=== PATIENT | male | born 1970 | race Caucasian/White ===

== ENCOUNTER 2020-08-26 19:22 | Observation (INO) | payer BC ==
[2020-08-26] MEDS ORDERED: Acetaminophen 325 MG TAB PO PRN (22:32)
[2020-08-26] MEDS ORDERED: Ondansetron PF 4 MG/2 ML Vial IVP PRN (22:32)
[2020-08-26] MEDS ORDERED: Atorvastatin Calcium 10 MG TAB PO SCH (23:30)
[2020-08-27 00:04] LABS: Troponin I 0.014 ng/mL (< 0.028)
[2020-08-27 00:43] VITALS: BMI 30.6
[2020-08-27 02:29] LABS: Troponin I Less than 0.010 ng/mL (< 0.028)
[2020-08-27 05:49] LABS: #Basophils 0.1 thou/uL (0.0-0.2); #Eosinphils 0.3 thou/uL (0.0-0.7); #Monocytes 0.8 thou/uL (0.11-0.59); #Neutrophils 3.4 thou/uL (1.40-6.50); %Basophils 0.9 % (0.0-1.0); %Eosinophils 3.9 % (0.0-10.0); %Lymphocytes 30.7 % (21.0-51.0); %Monocytes 12.1 % (0.0-10.0); %Neutrophils 52.5 % (42.0-75.0); Hemoglobin 13.4 g/dL (14.0-18.0); Mean Corpuscular HGB CONC 33.8 g/dL (32.0-36.0); Mean Corpuscular Hemoglobin 30.8 pg (27.0-31.0); Mean Corpuscular Volume 91.1 fL (78.0-98.0); Mean Platelet Volume 6.1 fL (7.4-10.4); Platelet Count 274 thou/uL (130-400); Red Blood Cell (RBC) Count 4.35 mill/uL (4.70-6.10); White Blood Cell (WBC) Count 6.6 thou/uL (4.8-10.8)
[2020-08-27 05:57] LABS: Anion Gap 12 mmol/L (10-20); BUN (Urea Nitrogen) 21 mg/dL (8.4-25.7); Calc. Creatinine Clearance 117 mL/min (70-130); Calcium 8.4 mg/dL (7.8-10.44); Carbon Dioxide 23 mmol/L (22-29); Chloride 107 mmol/L (98-107); Glucose 96 mg/dL (70-105); Potassium 4.2 mmol/L (3.5-5.1); Sodium 138 mmol/L (136-145)
[2020-08-27] MEDS ORDERED: Aspirin Chewable 81 MG TAB PO SCH (07:15)
[2020-08-27 08:56] LABS: Cardiac Risk 3.4 (Less than 4.5)
[2020-08-27] MEDS ORDERED: Amlodipine 5 MG TAB PO SCH (09:00)
[2020-08-27] MEDS ORDERED: Iopamidol 370 76% 100 ML VIAL ONE (12:52)
[2020-08-27 16:42] VITALS: BP 131/88; TEMP 98.3
[2020-08-27] MEDS ORDERED: Atorvastatin Calcium 10 MG TAB PO SCH (21:00)
[2020-08-28] MEDS ORDERED: Aspirin Chewable 81 MG TAB PO SCH (09:00)
== END 2020-08-27 18:13 | disposition home or self-care (01) ==
LOC: 2SW 19:22
PROVIDERS: ADMIT Internal Medicine; ATTEND Internal Medicine
DX: R55 Syncope and collapse (principal); I73.89 Other specified peripheral vascular diseases; I10 Essential (primary) hypertension; E78.2 Mixed hyperlipidemia; F17.200 Nicotine dependence, unspecified, uncomplicated; I08.1 Rheumatic disorders of both mitral and tricuspid valves; R42 Dizziness and giddiness; R00.2 Palpitations; R07.9 Chest pain, unspecified; E66.9 Obesity, unspecified; Z68.30 Body mass index [BMI] 30.0-30.9, adult; Z79.899 Other long term (current) drug therapy
CPT/HCPCS: 36415; 70450; 71275; 78452; 80048; 80061; 84443; 84484; 85025; 93005; 93010; 93017; 93306; A9500; G0378; Q9967